=== PATIENT | female | born 1950 | race Caucasian/White ===

== ENCOUNTER 2021-11-20 08:53 | Day surgery (SDC) | payer MEDICARE, SELFPAY ==
--- OUTSIDE RECORDS SUMMARY | 2021-10-19 08:38 | XMS_ITS | Continuity of Care Document ---
:1950 Author Allergies, Adverse Reactions, Alerts No known allergies Social History Smoking Status Status Start Date End Date Date of Observat ion Smokes tobacco daily April 3:49pm (finding) Additional Data Assigned Sex Female Problems Active Problems Medical Problem Onset Date Status Total Knee Arthroplasty October 07, 2012 Active Medications Medication Status Dose Units Route Directions Qty Days Start End Ins tructions Date Date Calcium Active 600 MG Carbonate (Ra Calcium 600) 600 Mg TAB Cholecalcifer Active 1000 U ol (Vitamin D-3) 1,000 Unit TAB Cyclobenzapri Active 5 MG ne Hcl Meloxicam Active 15 MG (Mobic) 15 Mg TAB Metoprolol Active 100 MG Tartrate Triamterene/H Active 1 ctz (Maxzide) 37.5 Mg/25 Mg TAB Acetaminophen Discontin 1-2 TAB PO Q4-6H Prn October ar /Hydrocodone ued , y Bitart 2013 01, (Hydrocodone- 2:26pm 2021 Acetaminophen 2:52pm ) 5 Mg/325 Mg TAB B-Complex Discontin 1 EA PO Daily Januar Vitamins ued y (Vitamin B 10th, Complex) TAB 2021 2:52pm Cholecalcifer Discontin 2000 UNIT PO Daily ol (Vitamin ued y D) 2,000 Unit , CAP 2021 2:52pm Cholecalcifer Discontin 1000 UNIT PO Daily September ol (Vitamin ued 11th, D) 400 Unit 2012 CAP 8:33am Hydrochloroth Discontin 25 MG PO Daily Januar iazide ued y 2021 2:52pm Hydroxyzine Discontin 25-50 MG PO Every 3 60 September Januar Pamoate ued Hours as 15, y needed 2012 10th, 10:27a 2021 m 2:52pm Metoprolol Discontin 100 MG PO Twice A Day Janua r Succinate ued y (Toprol Xl) 10th, 100 Mg TABCR 2021 2:52pm Multiple Discontin 1 EA PO Daily Januar Vitamin ued y (Multivitamin 10th, s) TAB 2021 2:52pm [place]-3 Fatty Discontin 1000 MG PO Daily Januar Acids (Fish ued y Oil) 1,000 Mg 2021 2:52pm Oxycodone Hcl Discontin 5-10 MG PO Every 3-4 50 September ar ued Hours 152012, 10:03a 2022 m 2:52pm Oxycodone Hcl Discontin 5-10 MG PO Every 3 60 Septemberuar ued Hours 182012 10th, 1:33pm 2021 2:52pm Oxycodone Hcl Discontin 5-10 MG PO Q4-6H Prn 80 September ar ued 2012, 8:41am 2021 2:52pm Oxycodone Hcl Discontin 5-10 MG PO Every 3-4 40 September ued Hours , 2012 9:48am 10:03a m Polyethylene Discontin 17 GM PO Daily 527 Septemberr Glycol ued (Polyethylene 2013 01, Glycol 3350) 9:48am 2021 17 Gm PACK 2:52pm Sennosides Discontin 2 TABLET PO Twice A Day 60 September ar (Senna) 1 ued Each TAB 2013 01, 9:48am 2021 2:52pm Vitamin E Discontin 100 UNIT PO Daily Januar ued y 2021 2:52pm Warfarin Discontin 5 MG PO Daily 30 Septemberr Sodium ued 2012, 9:48am 2021 2:52pm Advance Directives Advance Directive Response Recorded Date/Time Does Pt have Health Care Yes October 07, 2012 6:41am Directive? Insurance Providers Guarantor Susan Crooks Address [address] [address] Contact Info. Home Phone: Payer Policy Id Coverage Id Subscriber's Subscriber Effective Expi ration Name Id Date Date [facility] [id number] [place], Medicare Judith E Complete Plan of Treatment Future Tests Future scheduled test information is unavailable Pending Tests Pending diagnostic test information is unavailable Future Visits Future appointment information is unavailable Referrals to Other Providers Referral information is unavailable Future Procedures Future procedure information is unavailable Future Medications Future medication information is unavailable Patient Instructions Attached Discharge Info Warfarin (By mouth)
[2021-11-19 21:00] VITALS: BP 126/56; RESP 18; TEMP 36.9; O2SAT 99
[2021-11-20] VITALS (23 sets, daily range): BP systolic 84–151; BP diastolic 40–103; PULSE 54–72; RESP 16–18; TEMP 35–36.9; O2SAT 94–100; BMI 27.2
[2021-11-20] MEDS: SODIUM CHLORIDE 0.9 % (FLUSH) 10 ML SYRINGE IVF (09:20)
[2021-11-20] MEDS: LACTATED RINGERS 1000 ML 1,000 ML 100 ML IV ×2 (09:20→12:07)
[2021-11-20] MEDS: ACETAMINOPHEN 500 MG TABLET 1000 MG PO ×3 (09:27→22:23)
[2021-11-20] MEDS: CELECOXIB 200 MG CAPSULE PO ×2 (09:27→20:53)
[2021-11-20] MEDS: OXYCODONE (CR) 10 MG TAB.ER.12H PO (09:27)
[2021-11-20] MEDS: fentaNYL 100 MCG/2 ML inj IVP (10:21)
[2021-11-20] MEDS: MIDAZOLAM HCL 1 MG/ML inj IVP (10:21)
--- NOTE | 2021-11-20 10:23 | SUR.PREOP ---
TIME?OUT:?1020 PT/Edy BARNETT RN/Patricia EDMONDS MDA?VERIFICATION?OF?SURGICAL?SITE,?PROCEDURE,?AND?CONSENT OBTAINED?PRIOR?TO?INVASIVE?PROCEDURE.
--- NOTE | 2021-11-20 10:27 | P.NB_ITS ---
Nerve Block Nerve Block Time Seen by Provider: 10:27 Date Seen: 11/20/21 Type of block requested by surgeon for post-operative analgesia: adductor canal Side: left Time out performed: Yes Verification of patient name: Yes Verification of date of : Yes Site marking: site marked Name of person performing procedure: Donald Continuous monitoring Was continuous monitoring of O2 sat, B/P, roll mill operator, recorded every 15 minutes?: Yes Procedure Checklist: sterile prep, needles and gloves Ultrasound guided. Images saved: Yes Medications given in 5ml increments after negative aspiration: Ropivicaine %: 0.5 mL: 20 Needle gauge: 22 Decadron (mg): 10 Precedex (mcg): 25 Patient tolerated procedure well: Yes Additional comments: Needle noted adjacent to nerve Block Charges Block Charge (with Pro Fee): Femoral Nerve Use of Ultrasound Machine for Block: Yes- US Guidance/pain block
--- NOTE | 2021-11-20 10:27 | P.NB_ITS ---
Nerve Block Nerve Block Type of block requested by surgeon for post-operative analgesia: geniculars Time out performed: Yes Verification of patient name: Yes Verification of date of : Yes Site marking: site marked Name of person performing procedure: Donald Continuous monitoring Was continuous monitoring of O2 sat, B/P, cardiac rehabilitation program director, recorded every 15 minutes?: Yes Procedure Checklist: sterile prep, needles and gloves Medications given in 5ml increments after negative aspiration: Ropivicaine %: 0.5 mL: 9 Needle gauge: 25 Patient tolerated procedure well: Yes Block Charges Block Charge (with Pro Fee): Genicular Nerve Block Use of Ultrasound Machine for Block: No
[2021-11-20] MEDS: CEFAZOLIN 2 GM INJ IVP (11:12)
--- NOTE | 2021-11-20 12:36 | CRLHL7_ITS ---
For Patients: As a result of the Cures Act, medical imaging exams and procedure reports are released immediately into your electronic medical record. You may view this report before your referring provider. If you have questions, please contact your health care provider. Indication: Left knee arthroplasty Technique: Left knee 2 view Findings: Hardware from a left knee arthroplasty is in satisfactory position. Bone alignment is normal. No sign of acute fracture. There are postoperative changes in the soft tissues and knee effusion. Dictated by Will Aggarwal MD @ 11/20/2021 2:03:03 PM (Electronically Signed)
--- NOTE | 2021-11-20 12:42 | P.ORPRC_ITS ---
Procedure Note Date of procedure: 11/20/21 Procedure: SURGEON: Ernesto Ball MD CONSTRUCTION STONEMASON: Stephanie Berger PA-C PREOPERATIVE DIAGNOSIS: Left knee osteoarthritis POSTOPERATIVE DIAGNOSIS: Left knee osteoarthritis NAME OF OPERATION: Left total knee arthroplasty ANESTHESIA: Spinal ESTIMATED BLOOD LOSS: 0 mL COMPLICATIONS: None SPECIMENS: None DRAINS: None PREOPERATIVE ANTIBIOTICS: Ancef 2 grams IMPLANTS: 1. J&J Attune # 7 posterior stabilized femur 2. #6 fixed-bearing tibia 3. # 7 posterior stabilized, 7 mm fixed-bearing polyethylene 4. 38 patella INDICATIONS: The patient is a 71-year-old female with a longstanding history of severe, unrelenting left knee pain secondary to end-stage (grade IV) left knee osteoarthritis. Despite appropriate nonoperative management, including activity modification, anti-inflammatories, [id number] pain medication, bracing, physical therapy, and injections they continue to have pain and disability. Operative intervention was offered. The risks, benefits and expected outcomes were discussed in detail. These included but were not limited to: Infection, bleeding, injury to blood vessel or nerve, venous thromboembolism. All questions were answered to their satisfaction. Use of an data control assistant was necessary throughout the case for patient positioning and safety, soft tissue retraction, and closure. PROCEDURE: Spinal anesthesia was administered. The patient was placed supine on the operating table. The data control assistant made sure the patient was positioned appropriately. The lower extremity was prepped and draped in the usual sterile fashion. The limb was exsanguinated with the Marlo bandage. The pneumatic tourniquet was inflated to 300 mmHg. A standard anterior incision was made with the knee in flexion. Subcutaneous dissection was sharply taken through fascial layer #1. Full-thickness medial and lateral flaps were elevated. The data control assistant retracted the soft tissues and protected them throughout the case. A standard medial parapatellar approach was made. The patella was everted. The infrapatellar fat pad was preserved. The menisci and cruciate ligaments were sharply d?brided. Marginal osteophytes were d?brided with the rongeur. The drill was used to penetrate the femoral canal. The canal was aspirated and irrigated with pulse lavage. The intramedullary femoral guide was placed for a 6-degree valgus cut, removing 12 mm off the distal femur. The saw was used to make the cut. Whitesides line and the trans epicondylar axis were marked. The femoral sizing guide was pinned onto the distal femur. Three degrees of external rotation nicely parallels the transepicondylar axis. Pins were placed for posterior referencing. The four-in-one cutting guide was pinned onto the distal femur. The anterior, posterior, and chamfer cuts were made. The data control assistant protected the collateral ligaments. The box cutting guide was pinned. The box cuts were made. The boxed trial was placed and was an excellent fit. Drill holes for the lugs were made. Attention was then turned to the proximal tibia. The extramedullary tibial guide was placed for a neutral varus/valgus cut with 5 degrees of posterior slope, removing 4 sure mm based off the medial tibial surface. The data control assistant protected the collateral ligaments and the neurovascular bundle. The saw was used to make the cut. Trial components were placed. The knee was nicely balanced in both flexion and extension. Rotation of the tibial component was ma tched to the femur in full extension, matched to our tibial cutting pins, and marked with cautery. The trial components were removed. The tray was pinned by the data control assistant and the drill and the punch were used. The tray was removed. The punch was used again. We placed a bone plug in the femoral canal. Attention was then turned to the patella. [place] patellar thickness was 24 mm. The lobster claw resection guide was used with the 9.5 mm armando. The saw was used to make the cut. Drill holes were made by the data control assistant. The trial was placed and was an excellent fit. Cancellous surfaces were irrigated with pulse lavage and thoroughly dried by the data control assistant. We cemented the tibial component, then the femoral component. A trial spacer was placed. The knee was brought into full extension. We then cemented the patellar component. Excessive cement was removed. The cement was allowed to harden. Any remaining excessive cement was removed with the osteotome. We impacted the 7 mm polyethylene onto the tibial tray. The knee was taken through a range of motion and was found to be nicely balanced in both flexion and extension. The patella tracks centrally. The data control assistant did a three minute dilute Betadine solution soak. The data control assistant irrigated the wound with 3 liters of normal saline via pulse lavage. The data control assistant reapproximated the extensor mechanism with #1 Vicryl in an interrupted [id number] fashion. The data control assistant then ran the extensor mechanism with a #1 PDO Stratafix. The data control assistant closed the subcutaneous tissues with a 3-0 Stratafix and the skin with a running 3-0 Stratafix in a subcuticular fashion. Glue was used to seal the skin. The data control assistant placed a dry dressing, IDRIS stocking, and Polar Care. Sponge and needle counts were correct x2. The patient tolerated the procedure well. There were no apparent complications. They were carefully transferred to the hospital bed and taken to the postanesthesia care unit in satisfactory condition. PLAN: The patient will be mobilized with physical therapy. Aspirin will be used for DVT prophylaxis. They will be discharged to home once medically appropriate.
--- NOTE | 2021-11-20 13:23 | W.ANESCHARGE ---
Anesthesia Charges Start Date/Time Anesthesia Start Date: 11/20/21 Anesthesia Start Time: 11:05 Stop Date/Time Anesthesia Stop Date: 11/20/21 Anesthesia Stop Time: 13:20 Summary Emergency: No Extremes of Age: Over 70-CPT 04287
[2021-11-20] MEDS: HYDROmorphone 0.5 mg/0.5 ml inj IVP ×3 (14:39→16:47)
--- NOTE | 2021-11-20 15:11 | W.ANESCHARGE ---
Anesthesia Charges Start Date/Time Anesthesia Start Date: 11/20/21 Anesthesia Start Time: 11:05 Stop Date/Time Anesthesia Stop Date: 11/20/21 Anesthesia Stop Time: 13:20 Summary Emergency: No Extremes of Age: Over 70-CPT 79606
--- NOTE | 2021-11-20 15:18 | PM.IMCN1 ---
Date of Consult Consult date: 11/20/21 Requesting Physician: Orthopedics Primary Care Provider: Vidal Draper MD Consult Narrative Reason for consult: Consultation for management of medical problems following surgery Narrative: Susan Crooks is a 71 year old female who underwent left total knee arthroplasty performed today by Dr. Ball. He is requesting consultation. There were no operative complications. Postoperatively she reports she is generally feeling well although she has noting she is a bit cold. She is just beginning to feel the affects of her block wearing off and get feeling into her legs. No nausea or dyspnea. When she came to the hospital this morning she was fine. Preop physical did not identify any active medical problems to be addressed perioperatively. No problems with previous surgery, anesthesia, bleeding or clotting problems. Review of Systems Narrative: Patient reports she has been feeling well. No recent illness. She reports her medical problems have been generally doing well except for her arthritis. She did not take her max side this morning. Complete review of systems otherwise unremarkable. [facility] Medical History (Updated 11/20/21 @ 15:28 by Barry Clark MD) Cervical vertebral fusion (~02/26/99) Colonic stricture Diverticulosis Hypertension Osteoarthritis Osteopenia Scoliosis Surgical History (Updated 11/20/21 @ 15:28 by Barry Clark MD) History of fusion of cervical spine History of meniscectomy of right knee History of total knee arthroplasty (10/07/12) History of total right knee replacement (TKR) (~10/07/12) Family History Father FHx: kidney cancer Mother Stroke High blood pressure Osteoarthritis Brother Prostate cancer Social History (Updated 11/20/21 @ 15:25 by Barry Clark MD) Narrative: She lives in her own home in [place]. She has a son who lives with her. She has a friend, Marcelina Collins, who is going to stay with her and help her for the 1st couple weeks after surgery. She has 1 step into her house and then can live on 1 level. She has 3 children, 1 who lives with her. Code status is DNR. Healthcare power of traffic law attorney would be her friend Marcelina or her 2 older children. She smokes a half pack of cigarettes a day. She is not interested in nicotine replacement. She drinks alcohol 1-2 drinks per day. She does not have problems if she skips a couple days of alcohol consumption. health maintenance- patient mobility last done 12/15/12 Smoking Status: Current every day smoker What tobacco products do you use: cigarettes Smoking packs per day: 0.5 Smoking cigarettes per day: 10.0 Years smoked: 50 Smoking pack-years: 25.00 Do you use any of these nicotine containing products: None How often do you have a drink containing alcohol: 4 or more times a week Alcohol type: hard liquor How many standard drinks containing alcohol do you have on a typical day: 1 or 2 How often do you have six or more drinks on one occasion: Never AUDIT-C Alcohol total score: 4 Non-prescribed substance use: over the counter (eg: immodium) Non-prescribed substance use details: ibuprofen, acetaminophen Caffeine: Yes (coffee, 1-2 cups/day) Meds Home Medications and Allergies Home Medications Medication Instructions Recorded Confirmed Type calcium carbonate 600 mg calcium 600 mg PO BID 11/19/21 11/20/21 History (1,500 mg) tablet (Calcium) cholecalciferol (vitamin D3) 25 1,000 unit PO DAILY 11/19/21 11/20/21 History mcg (1,000 unit) capsule (Vitamin D3) cyclobenzaprine 5 mg tablet 5 mg PO Q8H PRN 11/19/21 11/20/21 History metoprolol tartrate 100 mg tablet 100 mg PO Q12H 11/19/21 11/20/21 History multivitamin 1 tab PO DAILY 11/19/21 11/20/21 History omega 2-qqb-uyb-fish oil 1,000 mg 1 cap PO DAILY 11/19/21 11/20/21 History (120 mg-180 mg) capsule (Fish Oil) triamterene 37.5 1 tab PO QAM 11/19/21 11/20/21 History mg-hydrochlorothiazide 25 mg tablet vitamin B complex 1 tab PO DAILY 11/19/21 11/20/21 History vitamin E mixed 100 unit tablet 100 unit PO DAILY 11/19/21 11/20/21 History Allergies Allergy/AdvReac Type Severity Reaction Status Date / Time No Known Allergies Allergy Unverified 11/13/21 08:26 Exam Narrative: Exam Narrative: She is alert and appears in no distress. Oropharynx is normal. Neck is supple without mass or adenopathy. Respirations are clear to auscultation. Cardiovascular: S1, S2, regular rate and rhythm. No murmur gallop or rub. Abdomen is soft without tenderness or mass. She has intact pulses and sensation distally she has intact strength in her feet and ankles. No edema. Hands and feet are somewhat cool to touch however. Const: Vital Signs, click to edit/add: Vital Signs - 24 hr 11/20/21 09:24 11/20/21 10:19 11/20/21 10:25 Temperature 97.7 F Pulse Rate 72 61 58 L Pulse Rate [Pulse Oximeter] Respiratory Rate 16 18 16 Blood Pressure 126/64 93/79 96/66 Blood Pressure [Le ft Arm] Pulse Oximetry 98 100 100 11/20/21 10:30 11/20/21 10:45 11/20/21 11:00 Temperature Pulse Rate 57 L 54 L 58 L Pulse Rate [Pulse Oximeter] Respiratory Rate 16 16 16 Blood Pressure 85/54 L 84/56 L 86/40 L Blood Pressure [Le ft Arm] Pulse Oximetry 99 98 99 11/20/21 13:17 11/20/21 13:20 11/20/21 13:25 Temperature 97.5 F L Pulse Rate 68 61 63 Pulse Rate [Pulse Oximeter] Respiratory Rate 16 16 16 Blood Pressure 85/52 L 123/65 112/59 L Blood Pressure [Le ft Arm] Pulse Oximetry 99 99 100 11/20/21 13:30 11/20/21 13:34 11/20/21 13:45 Temperature 97.0 F L 95 F L Pulse Rate 64 62 55 L Pulse Rate [Pulse Oximeter] Respiratory Rate 16 16 16 Blood Pressure 108/57 L 119/67 Blood Pressure [Le ft Arm] 102/62 Pulse Oximetry 98 97 11/20/21 14:00 11/20/21 14:15 11/20/21 14:30 Temperature 95.0 F L 95.6 F L 95.6 F L Pulse Rate Pulse Rate [Pulse Oximeter] 57 L 57 L 57 L Respiratory Rate 16 18 16 Blood Pressure Blood Pressure [Le ft Arm] 111/65 118/86 133/86 Pulse Oximetry 95 95 95 Documenting provider has reviewed patient's vital signs: yes Assessment and Plan Assessment and plan (1) History of arthroplasty of left knee: Status: Acute Assessment and Plan: Doing well. Routine PT and pain management (2) Smoking: Status: Acute Assessment and Plan: Patient declines nicotine replacement (3) Hypertension: Status: Acute Assessment and Plan: Continue metoprolol but hold Dyazide pending improvement in blood pressure and peripheral perfusion
[2021-11-20] MEDS: OXYCODONE 5 MG TABLET PO ×3 (15:29→22:17)
[2021-11-20 15:56] LABS: Sodium* 129 mmol/L (135-149)
[2021-11-20] MEDS: hydrOXYzine pamoate 25 MG CAPSULE PO (16:47)
[2021-11-20] MEDS: CEFAZOLIN 1 GM in 0.9 % SODIUM CHLORIDE Mini-bag 100 ML IVPB ×2 (18:15→22:25)
--- NOTE | 2021-11-20 20:27 | PC.NURSE ---
shift note; vss per post op routine initiated @1345. Pt had weakness with movement on lt l/e. drsg to lt knee c/d/i. PP+ bilat. pt having pain 4-8/10 and was medicated with dilaudid 0.5mg x2, oxycodone 10mg po x2, vistaril 25mg, and scheduled tylenol with minimal relief. pt states pain as high as 8/10 and as low as 4/10. Pt states pain lt knee travels to foot. Pt performing IS to 1500 and has clr LS bilat. Pt tolerating regular diet. IV patent
[2021-11-20] MEDS: SENNOSIDES 1 TAB TABLET 2 TAB PO (20:54)
[2021-11-20] MEDS: CALCIUM CARBONATE 500 MG TABLET PO (20:55)
[2021-11-20] MEDS: ASPIRIN 81 MG TABLET EC PO (20:55)
[2021-11-20] MEDS: LACTATED RINGERS 1000 ML 1,000 ML 75 ML IV (22:27)
[2021-11-21 02:00] VITALS: BP 149/75; RESP 18; TEMP 36.8; O2SAT 97
[2021-11-21 03:18] VITALS: TEMP 36.9
[2021-11-21] MEDS: ACETAMINOPHEN 500 MG TABLET 1000 MG PO ×2 (03:18→09:54)
[2021-11-21] MEDS: CEFAZOLIN 1 GM in 0.9 % SODIUM CHLORIDE Mini-bag 100 ML IVPB ×2 (05:05→13:57)
--- NOTE | 2021-11-21 06:17 | PC.NURSE ---
Alert and orientedx4. Vitals stable. On room air. Took home Metoprolol last night; educated on not taking home medications while remaining hospitalized; medications placed in the medroomWas able to void overnight for 900cc total. Ambulated on the hallway with standby assist using a walker. Tolerating pain well with activity. No further concerns noted
[2021-11-21 07:33] LABS: Basophils Percent Auto 0.1 % (0.0-3.0); Eosinophils Percent Auto 0.1 % (0.0-7.0); Hematocrit 38.8 % (33.0-51.0); Hemoglobin* 13.7 gm/dL (12.0-16.0); Immature Granulocytes Abs Auto 0.04 K/uL (0.00-0.30); Lymphocytes Percent Auto 10.7 % (20-44); Mean Corpuscular HGB Conc 35 gm/dL (32-36); Mean Corpuscular Hemoglobin 32 pg (26-34); Mean Corpuscular Volume 89 fL (80-100); Monocytes Percent Auto 6.7 % (0.0-11.0); Neutrophils Percent Auto 82.1 % (42.0-72.0); Platelet Count* 278 K/uL (140-440); RDW Coefficient of Variation % 12.4 % (11.5-15.5); Red Blood Count 4.34 m/uL (4.00-5.20); White Blood Count* 15.83 K/uL (4.50-11.00)
[2021-11-21 07:42] LABS: Slide Review Reflex No
[2021-11-21 07:45] LABS: INR 0.93 (0.91-1.10); Prothrombin Time 12.8 Seconds
[2021-11-21 07:46] LABS: Potassium* 3.7 mmol/L (3.6-5.1)
[2021-11-21 07:49] LABS: Blood Urea Nitrogen* 11 mg/dL (7-30); Creatinine* 0.6 mg/dL (0.5-1.5); Est. Creatinine Clearance* 50.18; Estimated Glomerular Filt Rate 96 ml/min
--- NOTE | 2021-11-21 08:46 | PM.ORPN ---
Subjective Subjective Time Seen by Provider: 07:30 Date Seen: 11/21/21 Principal diagnosis: Status post left total knee arthroplasty Interval history: Susan is comfortable this morning at rest in her hospital bed. Plan is for discharge today to home. Ortho Exam Narrative Exam Narrative: Alert and oriented x3. Patient is in no acute distress. Converses without labored breathing. Hearing is grossly intact. Examination of the left knee shows the dressing is intact. Very minimal soft tissue edema about the left knee. Minimal effusion. CMS intact left lower extremity. Difficulty with finding pedal pulses, however capillary refill is brisk less than 2 seconds, the left foot is warm. Bilateral calves are soft and nontender. Const Vital Signs, click to edit/add: Vital Signs - 24 hr 11/20/21 09:24 11/20/21 10:19 11/20/21 10:25 Temperature 97.7 F Pulse Rate 72 61 58 L Pulse Rate [Pulse Oximeter] Respiratory Rate 16 18 16 Blood Pressure 126/64 93/79 96/66 Blood Pressure [Left Arm] Pulse Oximetry 98 100 100 11/20/21 10:30 11/20/21 10:45 11/20/21 11:00 Temperature Pulse Rate 57 L 54 L 58 L Pulse Rate [Pulse Oximeter] Respiratory Rate 16 16 16 Blood Pressure 85/54 L 84/56 L 86/40 L Blood Pressure [Left Arm] Pulse Oximetry 99 98 99 11/20/21 13:17 11/20/21 13:20 11/20/21 13:25 Temperature 97.5 F L Pulse Rate 68 61 63 Pulse Rate [Pulse Oximeter] Respiratory Rate 16 16 16 Blood Pressure 85/52 L 123/65 112/59 L Blood Pressure [Left Arm] Pulse Oximetry 99 99 100 11/20/21 13:30 11/20/21 13:34 11/20/21 13:45 Temperature 97.0 F L 95 F L Pulse Rate 64 62 55 L Pulse Rate [Pulse Oximeter] Respiratory Rate 16 16 16 Blood Pressure 108/57 L 119/67 Blood Pressure [Left Arm] 102/62 Pulse Oximetry 98 97 11/20/21 14:00 11/20/21 14:15 11/20/21 14:30 Temperature 95 F L 95.6 F L 95.6 F L Pulse Rate Pulse Rate [Pulse Oximeter] 67 57 L 57 L Respiratory Rate 16 18 16 Blood Pressure Blood Pressure [Left Arm] 111/65 118/86 133/86 Pulse Oximetry 95 95 95 11/20/21 14:45 11/20/21 15:15 11/20/21 15:45 Temperature 95.6 F L 96.5 F L 96.5 F L Pulse Rate Pulse Rate [Pulse Oximeter] 57 L 58 L 60 Respiratory Rate 16 16 18 Blood Pressure Blood Pressure [Left Arm] 115/84 119/79 108/72 Pulse Oximetry 95 96 97 11/20/21 16:45 11/20/21 17:45 11/20/21 18:45 Temperature 96.5 F L 97.1 F L 97.1 F L Pulse Rate Pulse Rate [Pulse Oximeter] 62 61 61 Respiratory Rate 18 18 18 Blood Pressure Blood Pressure [Left Arm] 131/84 145/103 H 124/88 Pulse Oximetry 99 99 99 11/20/21 22:00 11/21/21 02:00 11/21/21 03:18 Temperature 98.5 F 98.3 F 98.5 F Pulse Rate Pulse Rate [Pulse Oximeter] Respiratory Rate 18 18 Blood Pressure Blood Pressure [Left Arm] 132/72 149/75 H Pulse Oximetry 99 97 Assessment and Plan Assessment and plan (1) History of arthroplasty of left knee: Problem details: Plan for discharge is today to home if they meet discharge criteria. DVT prophylaxis includes aspirin 81 mg twice daily x1 month, Ruslan stockings x1 month may remove for 1 hr per day, frequent ambulation Remove dressing in 1 week. Observe wound and phone Orthopedics with any questions or concerns Return to clinic in 1 week for a wound check Return to clinic in [address] Ball Minimize narcotic use. Wean off and discontinue soon as possible. Activities as tolerated. No strenuous activity. Outpatient physical therapy as scheduled. Ice and elevate the operative extremity. No restriction on ice. Status: Acute (2) Smoking: Status: Acute (3) Hypertension: Status: Acute
[2021-11-21 09:46] LABS: Chloride* 94 mmol/L (96-114); Sodium* 127 mmol/L (135-149)
[2021-11-21 09:49] LABS: Calcium* 9.6 mg/dL (8.4-10.6); Carbon Dioxide* 26 mmol/L (20-32); Glucose* 124 mg/dL (60-115)
[2021-11-21] MEDS: SENNOSIDES 1 TAB TABLET 2 TAB PO (09:49)
[2021-11-21] MEDS: CELECOXIB 200 MG CAPSULE PO (09:49)
[2021-11-21] MEDS: MULTIVITAMIN/MINERALS 1 TABLET 1 TAB PO (09:50)
[2021-11-21] MEDS: CALCIUM CARBONATE 500 MG TABLET PO (09:50)
[2021-11-21] MEDS: ASPIRIN 81 MG TABLET EC PO (09:50)
[2021-11-21] MEDS: METOPROLOL TARTRATE 100 MG TABLET PO (09:51)
[2021-11-21] MEDS: 0.9 % SODIUM CHLORIDE 500 ML 500 ML IV (12:05)
[2021-11-21] MEDS: OXYCODONE 5 MG TABLET PO (13:58)
[2021-11-21 15:18] LABS: Sodium* 128 mmol/L (135-149)
--- NOTE | 2021-11-21 15:46 | PC.NURSE ---
Spoke with Dr. Manley, updated Na 128, per ok to discharge.
--- NOTE | 2021-11-21 15:49 | PM.IMPN1 ---
Progress Note: A&P Assessment and plan (1) History of arthroplasty of left knee: Problem details: Plan for discharge is today to home if they meet discharge criteria. DVT prophylaxis includes aspirin 81 mg twice daily x1 month, Ruslan stockings x1 month may remove for 1 hr per day, frequent ambulation Remove dressing in 1 week. Observe wound and phone Orthopedics with any questions or concerns Return to clinic in 1 week for a wound check Return to clinic in [address] Ball Minimize narcotic use. Wean off and discontinue soon as possible. Activities as tolerated. No strenuous activity. Outpatient physical therapy as scheduled. Ice and elevate the operative extremity. No restriction on ice. Status: Acute Plan (1) History of arthroplasty of left knee: ?Status:?Acute ?Assessment and Plan: Doing well.? Routine PT and pain management (2) Smoking: ?Status:?Acute ?Assessment and Plan: Patient declines nicotine replacement (3) Hypertension: ?Status:?Acute ?Assessment and Plan: Continue metoprolol resuming dyazide at discharge 4. Hypochloremic hyponatremia; euvolemic on exam; sodium improved from 127 to 128 this afternoon with NS bolus. Continue oral hydration (Gatorade; electrolyte based solutions) recheck sodium in clinic next week Time Spent With Patient Total time spent: 25 minutes Subjective Date Seen: 11/21/21 Interval history: patient doing well discharging today afternoon sodium increased to 128 asymptomatic denies headache Exam Narrative: Exam Narrative: Gen: No acute distress HEENT: NCAT EOMI MMM CV: RRR normal s1 s2 Lungs: CTAB Abdo: soft, nt, nd Neuro: alert, oriented; nonfocal screening exam Const: Vital Signs, click to edit/add: Vital Signs - 24 hr 11/20/21 16:45 11/20/21 17:45 11/20/21 18:45 Temperature 96.5 F L 97.1 F L 97.1 F L Pulse Rate [Pulse Oximeter] 62 61 61 Respiratory Rate 18 18 18 Blood Pressure [Le ft Arm] 131/84 145/103 H 124/88 Pulse Oximetry 99 99 99 11/20/21 22:00 11/21/21 02:00 11/21/21 03:18 Temperature 98.5 F 98.3 F 98.5 F Pulse Rate [Pulse Oximeter] Respiratory Rate 18 18 Blood Pressure [Le ft Arm] 132/72 149/75 H Pulse Oximetry 99 97 Labs Labs: Laboratory Results - last 24 hr 11/20/21 11/21/21 11/21/21 15:30 06:45 06:45 WBC 15.83 H RBC 4.34 Hgb 13.7 Hct 38.8 MCV 89 MCH 32 MCHC 35 RDW Coeff of Martha 12.4 Plt Count 278 Neut % (Auto) 82.1 H Lymph % (Auto) 10.7 L [place] % (Auto) 6.7 Eos % (Auto) 0.1 Baso % (Auto) 0.1 Neut # (Auto) 13.00 H Lymph # (Auto) 1.70 [place] # (Auto) 1.10 H Eos # (Auto) 0.00 Baso # (Auto) 0.00 Abs Immat Gran (auto) 0.04 INR 0.93 Sodium 129 L Potassium Chloride Carbon Dioxide BUN Creatinine Estimated Creat Clear Estimated GFR Glucose Calcium 11/21/21 11/21/21 06:45 14:25 WBC RBC Hgb Hct MCV MCH MCHC RDW Coeff of Martha Plt Count Neut % (Auto) Lymph % (Auto) [place] % (Auto) Eos % (Auto) Baso % (Auto) Neut # (Auto) Lymph # (Auto) [place] # (Auto) Eos # (Auto) Baso # (Auto) Abs Immat Gran (auto) INR Sodium 127 L 128 L Potassium 3.7 Chloride 94 L Carbon Dioxide 26 BUN 11 Creatinine 0.6 Estimated Creat Clear 50.18 Estimated GFR 96 Glucose 124 H Calcium 9.6
--- NOTE | 2021-11-21 18:11 | PC.NURSE ---
shift [phone] pt this shift pleasant and cooperative. Pain managed with ice and prn meds, see eMAR. pt discharged to home, discharge instruction and follow-up appointment discussed. Pt wheeled out to front door and picked up by friend. IV dc'd.
== END 2021-11-21 18:10 | disposition home or self-care (01) ==
LOC: OR 13:39 → MEDSURG 13:56
PROVIDERS: Hospitalist; PCP Family Medicine; Visit Provider Orthopaedic Surgery
PROC: (CPT 27447; principal; 2021-11-20 11:00)
DX: M17.12 Unilateral primary osteoarthritis, left knee (principal); I10 Essential (primary) hypertension; M85.80 Other specified disorders of bone density and structure, unspecified site; F17.210 Nicotine dependence, cigarettes, uncomplicated; E87.8 Other disorders of electrolyte and fluid balance, not elsewhere classified; E87.1 Hypo-osmolality and hyponatremia
CPT/HCPCS: 27447; 01402; 36415; 64447; 64454; 73560; 76942; 80048; 82565; 84132; 84295; 84520; 85025; 85610; 97110; 97116; 97161; 97165; 97535; 99100; A9153; A9270; C1776; J0690; J1100; J1170; J2250; J2370; J2704; J2795; J3010; J7120

== ENCOUNTER 2021-12-13 11:15 | Outpatient (RCR) | payer MEDICARE, SELFPAY ==
--- NOTE | 2021-11-13 14:43 | PT.OPEX ---
PT [place] Outpatient Eval PT [facility] Outpatient Eval Start: 11/13/21 11:29 Freq: Status: Active Protocol: Document 11/13/21 11:30 ENM (Rec: 11/13/21 14:30 ENM [id number]) E-Signed By JOSÉ BanksT Physical Therapy Outpatient Evaluation Insurance Information Recert Due Date 02/05/22 Insurance Name Medicare B Medical Diagnosis L TKA Treating Diagnosis left knee pain, decreased hip strength, decreased knee strength, impaired balance, impaired gait Referring MD Jimenez Subjective Subjective Patient presents for pre-op TKA appointment prior to surgery on 11/20/21. She had her right knee done in 2011, that went smoothly but the knee does still feel stiff. She states that she doesn't use an AD at baseline but back in the fall she did have to start using w/c transport at airport or a cane for longer walks on vacation. Her ability to walk her dogs has become impacted as she can't walk as far anymore. Gardening has also been more challenging as she can't bend down well. Sometimes she has no new pain but when it is present it can be significant. Her friend will be staying with her for a couple of weeks after the surgery. She purchased a 2WW and has a cane . She already has grab bars by the toilet and shower. 2 steps to get in with just furniture support, doesn't have to do the stairs within the house as those lead to the laundry room. Patients goal after surgery is to be able to walk her dogs for longer. 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 Objective Other/Pertinent Objective Knee ROM L 2-0-125 with cramping while performing flexion, ext + for pain R 2-0-124 hip ROM WNL IR + for pain in hips B, ER R WNL L 25% limited strength: hip flexors 4-/5 B with pain in low back when performed on R knee extensors: 4-/5 B good quad set B, able to perform SLR B gait/balance: L ~7 s before LOB, R ~3-4s before LOB greater instability on R compared to L Patient ambulating with LLE toeing out, flexed knee posture, wider JEANMARIE with L knee valgus throughout palpation/joint mobility: no tenderness to palpation along joint line or patella L side, slightly limited patellar mobility med/lat/sup/inf swelling/observation: Patient with L knee valgus posture in standing, hallux valgus bilateral big toe Other: mild calf tightness B Functional Test Performed & Score LEFS: Assessment Assessment/Impression Patient is a 71year old female presenting for pre op visit prior to TKA on 11/20 to be performed by . Patient has difficulty with walking longer distances and gardening due to knee pains. She doesn't have knee pain all the time but when present it is significant 11/04. She will have support from her friend at home upon d/c. Patients goal is to be able to walk her dog for longer and be able to garden after her knee replacement. Upon assessment patient displays decreased proximal hip and knee strength, impaired gait pattern, impaired balance and bilateral calf tightness. She was given pre-op exercises to begin prior to surgery. Patient will be seen post operatively to reassess impairments that will be addressed with skilled care. Susan would greatly benefit from skilled PT to progress strength, ROM and ambulation post operatively in order to perform all household and work duties without significant difficulty or discomfort. Primary Functional Limitations walking, gardening Plan of Care Rehabilitation Potential Good Physical Therapy Goals After pre-op visit: ? Patient will be independent with HEP ? Patient will verbalize knowledge of stair navigation and proper sequencing ? Patient will have knowledge on home adaptations and use of assistive devices post operatively ? Patient will have knowledge of edema management Coordination/Communication With Referral Source Treatment Plan/Direct Interventions Gait Training,Joint Mobilization,Manual Therapy, Neuromuscular Re-ed,Self-Care/ Home Management,Therapeutic Activities,Therapeutic Exercises Frequency/Duration 1x visit prior to surgery on . Patient scheduled to start outpatient PT s/p TKA on 11/23. Has HEP to start with pre-operatively. Patient Will Be Discharged From Therapy Completion of LTG(s), Independent w/HEP Evaluation Billing Untimed Code Treatment Minutes 21 Complexity Low Certification Information Initial Certification Date 11/13/21 Ending Certification Date 02/05/22
--- NOTE | 2021-11-26 08:52 | PT.OPDNX ---
PT [facility] Outpatient Daily Note PT [facility] Outpatient Daily Note Start: 11/13/21 11:29 Freq: Status: Active Protocol: Document 11/23/21 12:39 ENM (Rec: 11/23/21 16:34 ENM [id number]) E-signed By Pauline Dobbs DPT PT OP Daily Progress Note Visit Information Note Type Re-Evaluation Visit Number 2 Insurance Information Recert Due Date 02/05/22 Insurance Name Medicare B Medical Diagnosis L TKA Treating Diagnosis left knee pain, decreased hip strength, decreased knee strength, impaired balance, impaired gait, impaired transfers Referring MD Subjective Subjective Patient underwent L TKA performed by on 11/20. She states that things have been getting better every day. The hardest thing right now is being able to lift that leg and bend the knee. She is getting around alright with the walker. The steps to get in/out haven't been too bad, someone else is doing her laundry for her right now so she isn't doing the stairs in her house. Sit to stands are the most challenging as patient states that right leg has to do most of the work or else its too painful. She has been able to manage pains with ice and medication. Patients goal is to be able to go on her walks and have less pain. PMHx: arthritis, R TKA Pain Comments varies moderate pain easing: icing and pain medication aggravating: bending the knee, sit to stands Home Exercise Home Exercise Comments pre op exercises: LAQ, SAQ, SLR, quad set, heel slide seated and supine, ankle pumps , knee ext stretch, HS set, Objective Other/Pertinent Objective Knee ROM L 0-3-75 R 2-0-124 hip ROM WFL as seen per transfer strength: did not formally assess MMT due to s/p TKA fair quad set L, good quad set R SLR unable to perform without full assist gait/balance: Patient ambulating with flexed posture, decreased knee extension, antalgic gait pattern, mod reliance of walker for support. R trunk lean and thrusting of LLE to swing through palpation/joint mobility: + for tightness and tenderness proximal to mid quad swelling/observation: superior patella L 49 cm R 42. 3 cm mid patella L 46 cm R 41 cm inferior patella L 42 cm R 40 cm no significant bruising present at this time, slight redness at medial knee joint Other: STS Pt having to perform with LLE extended supine<>sit having to lift LLE to perform Functional Test Performed & Score pre op LEFS: post op LEFS: Patient Instructed in Risks/Benefits Yes Therapeutic Exercise Therapeutic Exercise Minutes (minutes) 13 Therapeutic Exercise: To Restore quad set with 5s holds, TC for Functional Status quad activation and VC to decrease glute use SLR with strap assist in long sitting supine heel slide with strap seated heel slide with slider seated knee ext stretch with stairs Time spent reinforcing importance of performing exercises to regain strength and ROM. Educated on POC focus on quad activation and regaining full extension, goal of 90 deg of flexion to start out Manual Therapy Techniques Manual Therapy Minutes (minutes) 9 Manual Therapy Techniques Skilled edema massage anterior and posterior thigh/ knee Gait & Stair Training Gait Training/Stairs Minutes (minutes) 4 Gait & Stair Training Comments Therapist adjusting walker height for patient and educating pt on implementing quad activation with ambulation. Therapist cueing for pt to allow knee flexion with swinging through LLE as pt just thrusting extended extremity forward. Pt able to implement cues Treatment Minutes Untimed Code Treatment Minutes 24 Timed Code Treatment Minutes 26 Total Treatment Time 50 Billing Units Manual Therapy Units 1 Therapeutic Exercise Units 1 Re-Evaluation Units 1 Assessment/Impression Assessment/Impression Patient returns to PT for evaluation after TKA 11/20/21 performed by . Since being home pains have been improving as well as overall energy levels. They have been able to navigate their home environment with use of the 2WW with minimal difficulty. Patient is having difficulties with sit to stands, bending the knee, lifting the leg and walking. She has had moderate pain which has been well controlled with medication and icing. Her goal is to get back to walking and gardening as able. Upon assessment patient presents with decreased knee ROM, impaired gait, impaired balance, impaired transfers, decreased quad strength and swelling. Patient unable to perform SLR without total assist due to pain and weakness. Also has to perform STS transfers with LLE extended due to knee pains with flexion. Left knee joint line swelling measurements show a 7 cm difference compared to contralateral side with no significant bruising at this time. Impairments consistent with s/ p TKA. Patient would benefit from skilled PT to address impairments stated above in order to to perform all functional and recreational activities without significant difficulty or discomfort. Plan of Care Physical Therapy Goals In 5-6 weeks: 1. Patient will improve knee ROM to > 100 for improved ease of STS transfers 2. Patient will be able to perform tub transfer without difficulty and less than 2/10 knee pain for improved ability to perform self cares/ADLS 3. Patient will perform >5 SLR with improved form and strength to improve supine<> sit transfer In 7-11 visits: 1. Patient will improve knee ROM to >120 in order to comfortably navigate stairs for household and community navigation 2. Patient will ambulate with improved mechanics and no pain without AD >150' for improved community mobility 3. Patient will return to gardening activities with less than 2/10 knee pain demonstrating improved activity tolerance Daily Plan of Care Continue per POC Daily Plan of Care Comments 1-2x a week for 5 weeks, 1x a week for 4-5 weeks Recertification Information Patient's H.I.C.N.# # I Certify That I Have Established All Therapy Services/Plan Physician Signature Shows Agreement Dates & Medical Necessity Physician Comment/Change Comment or Changes Physician Signature & Date Please Sign/Date Here Physician NPI Number #
== END 2022-01-29 14:55 | disposition home or self-care (01) ==
PROVIDERS: Visit Provider Orthopaedic Surgery
DX: M25.562 Pain in left knee (principal); Z51.89 Encounter for other specified aftercare
CPT/HCPCS: 97110; 97140; 97161; 97164

== ENCOUNTER 2023-01-10 14:41 | Outpatient (CLI) | payer MEDICARE, SELFPAY | END 2023-01-10 14:42 | disposition home or self-care (01) | LOC: AMB 01-11 18:30 | PROVIDERS: PCP Family Medicine; Visit Provider Emergency Medicine | DX: R55 Syncope and collapse (principal) | CPT/HCPCS: A0425; A0427 ==

== ENCOUNTER 2023-01-10 15:15 | Emergency (ER) | payer MEDICARE, SELFPAY ==
[2023-01-10] VITALS (12 sets, daily range): BP systolic 137; BP diastolic 72; PULSE 64–74; RESP 18; TEMP 36.3; O2SAT 96–99; BMI 25.8
--- NOTE | 2023-01-10 15:33 | CRLHL7_ITS ---
For Patients: As a result of the Cures Act, medical imaging exams and procedure reports are released immediately into your electronic medical record. You may view this report before your referring provider. If you have questions, please contact your health care provider. Indication: Syncope Comparison: None available. Technique: PA and lateral views of the chest Findings: There is hyperinflation and chronic interstitial change with basilar atelectasis and parenchymal scar. There is no dense consolidation, effusion or pneumothorax. The cardiomediastinal silhouette is within normal limits. The bony thorax is grossly intact. Impression: Chronic interstitial changes without evidence of dense consolidation. Dictated by Kalia Baird MD @ 01/10/2023 5:54:28 PM (Electronically Signed)
--- NOTE | 2023-01-10 15:44 | ED_ITS ---
HPI - General Adult General Time Seen by Provider: 15:44 Date Seen: 01/10/23 Chief complaint: Syncope/Fainted Stated complaint: Syncopy Time Seen by Provider: 01/10/23 15:32 History of Present Illness HPI narrative: This is a very pleasant 72-year-old female brought to the ER today by EMS from her home for evaluation after a syncopal event. Report the patient is that she does have long-term blood pressure. She is on metoprolol and triamterene for that. She does not know her doses but she has been steady on them for a long time. No recent changes. She is confident that she did not take too much of her blood pressure medication this morning or lately. She did not have any other recent illnesses. No recent fever. No cough. No trouble breathing. No vomiting or diarrhea. No black or bloody stools. No abdominal pain. She was healthy normal this morning but she had a bit of a ?lazy? morning where she did not do as much activity is normal. This afternoon she walk out into her driveway to meet her petroleum engineering professor who was re turning the patient's house keys (sitter had watched her CT last week). While in the driveway she suddenly began to feel dizzy. She apparently slumped against the car and then slid down onto the ground. It sounds like she slid gently and was not injured did not hit her head. She was briefly unresponsive. Her petroleum engineering professor called 911. Patient did not have any chest pain, palpitations, shortness of breath, headache, abdominal pain or back pain. When paramedics arrived she was still on the ground. No report of seizure activity. She is she was somewhat dizzy. Initial blood pressure was 80/40. Initial heart rate was in 30s but appeared to be sinus. Subsequently they established an IV. Blood pressure came up to about 120/60. She received 250 mL of crystalloid EN route. She is otherwise mentating normally. No focal deficits. Blood sugar was normal. Subsequent blood pressure measurements were normal. No other arrhythmia or ectopy noted on EMS monitor. Now that she is here in the ER the patient says she still feels a little bit dizzy but has no other complaints. Related Data Home Medications Medication Instructions Recorded Confirmed calcium carbonate 600 mg calcium 600 mg PO BID 11/19/21 06/03/22 (1,500 mg) tablet (Calcium) cholecalciferol (vitamin D3) 25 1,000 unit PO DAILY 11/19/21 06/03/22 mcg (1,000 unit) capsule (Vitamin D3) cyclobenzaprine 5 mg tablet 5 mg PO Q8H PRN 11/19/21 06/03/22 metoprolol tartrate 100 mg tablet 100 mg PO Q12H 11/19/21 06/03/22 multivitamin 1 tab PO DAILY 11/19/21 06/03/22 omega 5-zsc-nzr-fish oil 1,000 mg 1 cap PO DAILY 11/19/21 06/03/22 (120 mg-180 mg) capsule (Fish Oil) triamterene 37.5 1 tab PO QAM 11/19/21 06/03/22 mg-hydrochlorothiazide 25 mg tablet vitamin B complex 1 tab PO DAILY 11/19/21 06/03/22 vitamin E mixed 100 unit tablet 100 unit PO DAILY 11/19/21 06/03/22 acetaminophen 500 mg tablet 1,000 mg PO Q6H PRN 06/03/22 06/03/22 (Tylenol Extra Strength) Allergies Allergy/AdvReac Type Severity Reaction Status Date / Time No Known Allergies Allergy Unverified 06/03/22 09:58 [facility] Medical History (Updated 01/10/23 @ 18:23 by Richard Weston MD) Health care directive on file ?Z78.9 - Other specified health status (ICD-10) Osteoarthritis ?M19.90 - Unspecified osteoarthritis, unspecified site (ICD-10) Colonic stricture ?K56.699 - Other intestinal obstruction unspecified as to partial versus complete obstruction (ICD-10) Osteopenia ?M85.80 - Other specified disorders of bone density and structure, unspecified site (ICD-10) Cervical vertebral fusion (~02/26/99) ?M43.22 - Fusion of spine, cervical region (ICD-10) Diverticulosis ?K57.90 - Diverticulosis of intestine, part unspecified, without perforation or abscess without bleeding (ICD-10) Scoliosis ?M41.9 - Scoliosis, unspecified (ICD-10) Hypertension ?I10 - Essential (primary) hypertension (ICD-10) Surgical History (Updated 05/21/22 @ 11:17 by Krista Whiting) S/P left knee arthroscopy (04/22/12) ?Z98.890 - Other specified postprocedural states (ICD-10) 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) ?Z96.652 - Presence of left artificial knee joint (ICD-10) History of fusion of cervical spine ?Z98.1 - Arthrodesis status (ICD-10) History of meniscectomy of right knee (03/17/06) ?Z98.890 - Other specified postprocedural states (ICD-10) History of total right knee replacement (TKR) (10/07/12) ?Z96.651 - Presence of right artificial knee joint (ICD-10) Family History Father FHx: kidney cancer Mother Stroke High blood pressure Osteoarthritis Brother Prostate cancer Social History (Reviewed 06/03/22 @ 09:56 by Binta Tamez ~ [facility], [facility]) Narrative: She lives in her own home in [place]. She has a son who lives with her. She has a friend, Marcelina Collins, who is going to stay with her and help her for the 1st couple weeks after surgery. She has 1 step into her house and then can live on 1 level. She has 3 children, 1 who lives with her. Code status is DNR. Healthcare power of trademark attorney would be her friend Marcelina or her 2 older children. She smokes a half pack of cigarettes a day. She is not interested in nicotine replacement. She drinks alcohol 1-2 drinks per day. She does not have problems if she skips a couple days of alcohol consumption. health maintenance- patient mobility last done 12/15/12 Smoking Status: Current every day smoker What tobacco products do you use: cigarettes Smoking packs per day: 0.5 Smoking cigarettes per day: 10.0 Years smoked: 50 Smoking pack-years: 25.00 Do you use any of these nicotine containing products: None Second hand tobacco smoke exposure: No How often do you have a drink containing alcohol: 4 or more times a week Alcohol type: hard liquor How many standard drinks containing alcohol do you have on a typical day: 1 or 2 How often do you have six or more drinks on one occasion: Never AUDIT-C Alcohol total score: 4 Non-prescribed substance use: over the counter (eg: immodium) Non-prescribed substance use details: ibuprofen, acetaminophen Caffeine: Yes (coffee, 1-2 cups/day) Exam Narrative: Exam Narrative: Constitutional: Appears well-developed and well-nourished. Alert. Conversant. Non toxic. HENT: Head: Atraumatic. Nose: Nose normal. Mouth/Throat: Oral mucosa is clear and moist. no trismus. Pharynx normal. Tonsils symmetric. No tonsillar enlargement, erythema, or exudate. Eyes: Conjunctivae normal. EOM normal. Pupils equal, round, and reactive to light. No scleral icterus. Neck: Normal range of motion. Neck supple. No tracheal deviation present. No JVD. No thyromegaly. Cardiovascular: Normal rate, regular rhythm. No gallop. No friction rub. No murmur heard. Symmetric radial and PT artery pulses Pulmonary/Chest: Effort normal. No stridor. No respiratory distress. No wheezes. No rales. No rhonchi . No tenderness. Abdominal: Soft. No distension. No mass. No tenderness. No rebound. No guarding. Musculoskeletal: RUE: Normal range of motion. No tenderness. No deformity LUE: Normal range of motion. No tenderness. No deformity RLE: Normal range of motion. No edema. No tenderness. No deformity LLE: Normal range of motion. No edema. No tenderness. No deformity Neurological: Alert and oriented to person, place, and time. Normal strength. CN II-VII intact. No sensory deficit. GCS eye subscore is 4. GCS verbal subscore is 5. GCS motor subscore is 6. Normal coordination Skin: Skin is warm and dry. No rash noted. No pallor. Normal capillary refill. Psychiatric: Normal mood. Normal affect. Const: Vital Signs, click to edit/add: Vital Signs - 24 hr 01/10/23 15:25 01/10/23 15:30 01/10/23 15:52 Temperature 97.3 F L Pulse Rate 64 65 Pulse Rate [Right Pulse Oximeter] 68 Respiratory Rate 18 Blood Pressure [Ri ght Upper Arm] 137/72 Pulse Oximetry 96 97 97 Oxygen Delivery Me thod Room Air Room Air 01/10/23 16:00 01/10/23 16:15 01/10/23 16:30 Temperature Pulse Rate 66 64 69 Pulse Rate [Right Pulse Oximeter] Respiratory Rate Blood Pressure [Ri ght Upper Arm] Pulse Oximetry 99 96 98 Oxygen Delivery Me thod 01/10/23 16:45 01/10/23 17:00 01/10/23 17:15 Temperature Pulse Rate 68 68 69 Pulse Rate [Right Pulse Oximeter] Respiratory Rate Blood Pressure [Ri ght Upper Arm] Pulse Oximetry 99 97 96 Oxygen Delivery Me thod 01/10/23 17:30 01/10/23 17:45 01/10/23 18:00 Temperature Pulse Rate 72 71 74 Pulse Rate [Right Pulse Oximeter] Respiratory Rate Blood Pressure [Ri ght Upper Arm] Pulse Oximetry 96 99 99 Oxygen Delivery Me thod Room Air Course Course ED Course: Recheck-doing well. No ongoing symptoms. Has been ambulatory in the hallway without any dizziness. She is requesting discharge home. Vital Signs Vital signs: Initial Vital Signs Temperature 97.3 F L 01/10/23 15:25 Temperature Source Temporal Artery Scan 01/10/23 15:25 Pulse Rate 68 01/10/23 15:25 Pulse Rhythm Regular 01/10/23 15:25 Respiratory Rate 18 01/10/23 15:25 Blood Pressure 137/72 01/10/23 15:25 Blood Pressure Mean 93 01/10/23 15:25 Blood Pressure Position Sitting 01/10/23 15:25 Pulse Oximetry 96 01/10/23 15:25 Oxygen Delivery Method Room Air 01/10/23 15:25 Vital Signs Temperature 97.3 F L 01/10/23 15:25 Pulse Rate 68 01/10/23 15:25 Respiratory Rate 18 01/10/23 15:25 Blood Pressure 137/72 01/10/23 15:25 Pulse Oximetry 96 01/10/23 15:25 Oxygen Delivery Method Room Air 01/10/23 15:25 Temperature 97.3 F L 01/10/23 15:25 Pulse Rate 74 01/10/23 18:00 Respiratory Rate 18 01/10/23 15:25 Blood Pressure 137/72 01/10/23 15:25 Pulse Oximetry 99 01/10/23 18:00 Oxygen Delivery Method Room Air 01/10/23 17:45 Medical Decision Making MDM Narrative Medical decision making narrative: This patient presents for evaluation of a syncopal event. A broad differential was considered. History provided suggests a benign cause of syncope. No murmurs . Initial ECG shows normal sinus rhythm and no dysrhythmogenic abnormality such as WPW, prolonged QT, Brugada syndrome, and no ischemia. No symptoms/findings concerning for cardiac ischemia or ACS . No headache or other neurologic symptoms to suggest subarachnoid , stroke . No reported seizure-like activity or postictal phase. security monitor while the patient here in the ER showed no dysrhythmia or ectopy. A broad differential diagnosis was considered including SVT, Atrial fibrillation, ventricular arrhythmia, thyroid disease, acute electrolyte abnormality, drugs/medications, medication side effect, anemia, heart disease, PE, among others. She does have mild hyponatremia which is likely noncontributory. This is previously known to the patient apparently chronic. Recommend recheck within 1 week with her doctor to make sure it is not worsening but likely is not contributing to her syncope today. The workup and exam here in ED shows low risk for dangerous cause of the patient's syncope, and no risks factors to warrant admission. Clinical judgement suggests that supportive outpatient management is indicated. Recommend follow up with her PCP with 1 week. Questions answered and return precautions given Lab Data Labs: Lab Results 01/10/23 Range/Units 16:04 WBC 10.00 (4.50-11.00) K/uL RBC 4.34 (4.00-5.20) m/uL Hgb 13.3 (12.0-16.0) gm/dL Hct 38.5 (33.0-51.0) % MCV 89 (80-100) fL MCH 31 (26-34) pg MCHC 35 (32-36) gm/dL RDW Coeff of Martha 13.0 (11.5-15.5) % Plt Count 226 (140-440) K/uL Neut % (Auto) 73.0 H (42.0-72.0) % Lymph % (Auto) 19.8 L (20-44) % Valencia % (Auto) 5.8 (0.0-11.0) % Eos % (Auto) 0.9 (0.0-7.0) % Baso % (Auto) 0.3 (0.0-3.0) % Neut # (Auto) 7.30 H (1.7-7.0) K/uL Lymph # (Auto) 2.00 (0.90-2.90) K/uL Valencia # (Auto) 0.60 (0.00-0.90) K/UL Eos # (Auto) 0.09 (0.00-0.50) K/uL Baso # (Auto) 0.03 (0.00-0.30) K/uL Abs Immat Gran (auto) 0.02 (0.00-0.30) K/uL Imm/Tot Granulo (auto) 0.2 % Sodium 132 L (135-149) mmol/L Potassium 4.1 (3.6-5.1) mmol/L Chloride 97 (96-114) mmol/L Carbon Dioxide 27 (20-32) mmol/L Anion Gap 8 (7-15) mEq/L BUN 17 (7-30) mg/dL Creatinine 0.7 (0.5-1.5) mg/dL Estimated Creat Clear 51.30 Estimated GFR 92 ml/min Glucose 110 (60-115) mg/dL Calcium 9.8 (8.4-10.6) mg/dL Troponin I < 0.01 L (0.01-0.04) ng/mL TSH 2.480 (0.270-4.200) uIU/mL Ethyl Alcohol < 0.01 L (0.01-0.03) % Imaging Data Chest x-ray: Radiologist's impression: Impression: Chronic interstitial changes without evidence of dense consolidation. ECG Data Interpretation: Normal sinus rhythm . Rate 63 CA 200 QRS axis normal axis. No pathologic Q-waves. ST segment/T wave: No ST segment elevation or depression. Nonspecific T-wave flattening throughout. QTc: 458. No signs of Brugada syndrome. No LVH. No delta waves or WPW. Discharge Plan Discharge Clinical Impression: Hyponatremia, Syncope and collapse Patient Disposition: Home, Self-Care Condition: Stable Instructions: Syncope (ED) Additional Instructions: Please follow-up with your regular doctor within the next 1 week. Recheck with your doctor to recheck her sodium and ask them if you need outpatient heart monitoring for further evaluation after this fainting spell. As we discussed, please come back to the ER right away if you have any problems especially dizzy spells, palpitations, chest pain, trouble breathing, lightheadedness, or if you have any other concerns. Prescriptions: No Action acetaminophen [Tylenol Extra Strength] 500 mg tablet 1,000 mg PO Q6H PRN metoprolol tartrate 100 mg tablet 100 mg PO Q12H Patient Comments: TAKE 1 TABLET BY MOUTH 2 TIMES DAILY. triamterene-hydrochlorothiazid 37.5-25 mg tablet 1 tab PO QAM Patient Comments: TAKE ONE TABLET BY MOUTH EVERY MORNING cyclobenzaprine 5 mg tablet 5 mg PO Q8H PRN Patient Comments: TAKE 1 TABLET (5 MG) BY MOUTH 3 TIMES DAILY IF NEEDED FOR MUSCLE SPASM. calcium carbonate [Calcium 600] 600 mg calcium (1,500 mg) tablet 600 mg PO BID cholecalciferol (vitamin D3) [Vitamin D3] 25 mcg (1,000 unit) capsule 1,000 unit PO DAILY multivitamin Tablet 1 tab PO DAILY vitamin B complex Tablet 1 tab PO DAILY vitamin E mixed 100 unit tablet 100 unit PO DAILY omega 3-nvl-puc-fish oil [Fish Oil] 1,000 mg (120 mg-180 mg) capsule 1 cap PO DAILY Follow Up/Referrals: Vidal Draper MD [Primary Care Provider] - Stand Alone Forms: [employer] Info Instructions
[2023-01-10 16:17] LABS: Basophils Absolute Auto 0.03 K/uL (0.00-0.30); Basophils Percent Auto 0.3 % (0.0-3.0); Eosinophils Absolute Auto 0.09 K/uL (0.00-0.50); Eosinophils Percent Auto 0.9 % (0.0-7.0); Hematocrit 38.5 % (33.0-51.0); Hemoglobin* 13.3 gm/dL (12.0-16.0); Immature Granulocytes Abs Auto 0.02 K/uL (0.00-0.30); Immature Granulocytes Pct Auto 0.2 %; Lymphocytes Percent Auto 19.8 % (20-44); Mean Corpuscular HGB Conc 35 gm/dL (32-36); Mean Corpuscular Hemoglobin 31 pg (26-34); Mean Corpuscular Volume 89 fL (80-100); Monocytes Percent Auto 5.8 % (0.0-11.0); Platelet Count* 226 K/uL (140-440); Red Blood Count 4.34 m/uL (4.00-5.20)
[2023-01-10 16:23] LABS: Slide Review Reflex No
[2023-01-10 16:31] LABS: Chloride* 97 mmol/L (96-114); Sodium* 132 mmol/L (135-149)
[2023-01-10 16:32] LABS: Potassium* 4.1 mmol/L (3.6-5.1)
[2023-01-10 16:34] LABS: Creatinine* 0.7 mg/dL (0.5-1.5); Estimated Glomerular Filt Rate 92 ml/min
[2023-01-10 16:35] LABS: Anion Gap 8 mEq/L (7-15); Blood Urea Nitrogen* 17 mg/dL (7-30); Calcium* 9.8 mg/dL (8.4-10.6); Carbon Dioxide* 27 mmol/L (20-32); Glucose* 110 mg/dL (60-115)
[2023-01-10 16:37] LABS: Ethanol* < 0.01 % (0.01-0.03)
[2023-01-10 16:46] LABS: Troponin I* < 0.01 ng/mL (0.01-0.04)
== END 2023-01-10 18:32 | disposition home or self-care (01) ==
LOC: ED 18:32
PROVIDERS: Emergency Provider Emergency Medicine; PCP Family Medicine
DX: E87.1 Hypo-osmolality and hyponatremia (principal); R55 Syncope and collapse
CPT/HCPCS: 36415; 71046; 80048; 82077; 84443; 84484; 85025; 93005; 99283; 99284; 99285

== ENCOUNTER 2024-02-20 12:30 | Outpatient (RCR) | payer MEDICARE, SELFPAY | END 2024-02-20 14:55 | disposition home or self-care (01) | PROVIDERS: PCP Family Medicine; Visit Provider Orthopaedic Surgery Orthopaedic Surgery of the Spine | DX: M54.50 Low back pain, unspecified (principal); Z51.89 Encounter for other specified aftercare | CPT/HCPCS: 97110; 97140; 97162 ==

== ENCOUNTER 2024-03-23 10:24 | Outpatient (CLI) | payer MEDICARE, SELFPAY ==
--- OUTSIDE RECORDS SUMMARY | 2024-03-23 10:27 | XMS_ITS | Clinical Summary ---
Author Organization [employer] [facility] Address [place], [place] [address] Care Team Providers Care Sweeping Compound Blender Name Role Phone Dari Mejia Primary Care Provider [phone] Allergies No known active allergies Medications Medication Sig Dispensed Refills Start Date End Date Status MULTIVITAMIN CAP None Entered 0 Active VITAMIN B COMPLEX TAB Take one daily 0 01/19/2009 Active VITAMIN E 100 UNIT TAB Take one daily 0 01/19/2009 Active cholecalciferol (VITAMIN D) 1,000 unit tablet Take 1 tablet by mouth once daily. 0 05/09/2009 Active calcium carbonate (CALTRATE) 600 mg calcium (1,500 mg) tablet Take 1 tablet by mouth 2 times daily with meals. 180 tablet 3 07/24/2018 Active acetaminophen (TYLENOL EXTRA STRGTH) 500 mg tablet TAKE 1 TO 2 TABLETS (500-1000MG) BY MOUTH EVERY SIX HOURS NEEDED. MAX ACETAMINOPHEN DOSE IS 4000MG PER 24 HOURS 11/21/2021 Active cyclobenzaprine (FLEXERIL) 5 mg tabletIndications:Sc oliosis, unspecified scoliosis type, unspecified spinal region Take 1 Tablet (5 mg) by mouth 3 times daily if needed for Muscle Spasm. 30 Tablet 3 09/13/2022 Active metoprolol tartrate (LOPRESSOR) 100 mg tabletIndications:Es sential hypertension Take 1 Tablet (100 mg) by mouth two times daily. 180 Tablet 3 11/06/2023 Active lisinopril-hydrochlo rothiazide (10-12.5 mg) tablet (PRINZIDE; ZESTORETIC)Indicatio ns:Essential hypertension Take 1 Tablet by mouth once daily. 90 Tablet 3 11/06/2023 Active atorvastatin (LIPITOR) 10 mg tabletIndications:Mi xed hyperlipidemia Take 1 Tablet (10 mg) by mouth at bedtime. 90 Tablet 3 11/06/2023 Active Active Problems Problem Noted Date Diagnosed Date Hyponatremia 11/06/2023 Donor of organ or tissue 02/14/2021 Overview (02/14/2021): She is donating her body to the [facility] and they must receive it within 24 hours of her . The contact number is [phone]. Arthritis of left knee 09/10/2019 Overview (09/10/2019): Confirmed by Arthroscopy in 2011. Vidal Draper MD signed electronically .................... 09/10/2019 Colonic stricture 12/12/2016 Osteopenia 07/23/2016 Arthritis 07/21/2015 Overview (07/21/2015): osteoarthritis Colon polyp 12/05/2011 Overview (06/20/2021): Colonoscopy 11/2011 polyp repeat in 5 years Colonoscopy 11/2016 severe diverticuli with stricture, unable to pass, recommend CT colonography She refused any colon cancer screening today 06/20/2021. Diverticulosis of colon (without mention of hemo rrhage) 12/03/2011 Unspecified essential hypertension Degeneration of intervertebral disc, site unspec ified Resolved Problems Problem Noted Date Diagnosed Date Resolved Date skilled nursing (current) use of anticoagulants 10/14/2012 11/05/2012 Osteopenia 08/14/2011 11/06/2023 Encounters Date Type Department Care Team Description 03/18/2024 Travel 02/17/2024 Transcribe Orders [facility] [address] [place] [address] Bentley Baig MD 02/09/2024 Orders Only [facility] Scanner 1 scan: (1-Ord) CEDAR CREST, LUMBAR SPINE MIN 4 VIEWS, 02/09/2024 from Last 3 Months Immunizations Name Administration Dates Next Due COVID-19 vaccine (Owl[employer]-Bio NTech 30mcg/0.3mL) ADAN MARROQUIN 05/09/2021,07/25/2020,07/04/2020 Hepatitis A (Adult) 08/21/2009 Hepatitis B (Adult) 08/21/2009 Inactivated Polio Vaccine 08/21/2009 Tdap 11/20/2007 Tuberculin (PPD) 12/09/2000 Typhoid (injectable) 08/21/2009 Yellow Fever 08/21/2009 Family History Medical History Relation Name Comments Cancer-prostate Brother Other Father kidney cancer a t age 54 Hypertension Maternal Grandmother Hypertension Mother Osteoporosis Mother Stroke Mother at 85 from her second stroke Cancer-breast No Family History Relation Name Status Comments Brother Alive Father Maternal Grandmother Mother Sister 1 Alive Sister 2 Alive Social History Tobacco Use Types Packs/Day Years Used Date Smoking Tobacco: Every Day Cigarettes 0.5 55.1 Started: 02/08/1969 Smokeless Tobacco: Never Tobacco Cessation:Ready to Q uit: Not Asked; Counseling Given: Not Answered Alcohol Use Standard Drinks/Week Comments Yes 20 (1 standard drink = 0.6 oz pu re alcohol) PHQ-2 Answer Date Recorded PHQ-2 TOTAL SCORE 1 11/04/2023 Social Connections Answer Date Recorded Do you often feel lonely or isolated from those around you? 0 11/04/2023 Alcohol Use Answer Date Recorded How often do you have a drink containing alcohol ? 4 10/16/2022 How many drinks containing a lcohol do you have on a typical day when you are drinking? 0 10/16/2022 How often do you have five or more drinks on one occasion? 0 10/16/2022 Financial Resource Strain Answer Date R ecorded Difficulty of Paying Living Expenses 3 11/04/2023 Difficulty of Paying Living Expenses Not on file 11/04/2023 Food Insecurity Answer Date Recorded Do you worry your food will run out before you are able to buy more? 1 11/04/2023 Transportation Needs Answer Date Record ed Does lack of transportation keep you from medica l appointments? 1 11/04/2023 Does lack of transportation keep you from work, meetings or getting things that you need? 1 11/04/2023 Housing Stability Answer Date Recorded What is your housing situation today? 2 11/04/2023 Sex and Gender Information Value Date Recorded Sex Assigned at Not on file Gender Identity Not on file Sexual Orientation Not on file Obstetrics History Para Term AB IAB SAB Ectopic Multiple Livin g Live Births 3 3 Date Outcome GA Total Labor Labor/2nd/3rd Weight Sex Type Anes PTL Krystal A1 A5 Name Clin Last Filed Vital Signs Vital Sign Reading Time Taken Comments Blood Pressure 104/80 12/01/2023 1:11 PM CDT Pulse 66 12/01/2023 1:11 PM CDT Temperature 36.6 C (97.8 F) 12/12/2021 11:17 AM CDT Respiratory Rate - - Oxygen Saturation 97% 12/01/2023 1:11 PM CDT Inhaled Oxygen Concentration - - Weight 80.7 kg (178 lb) 12/01/2023 1:11 PM CDT Height 170.9 cm (5' 7.28) 11/04/2023 11:08 AM C DT Body Mass Index 27.64 11/04/2023 11:08 AM CDT Plan of Treatment Upcoming Encounters Date Type Department Care Team (Late st Contact Info) Description 03/23/2024 11:00 AM STRIPPER OPAQUER Office Visit [facility] [address] [place] [address] Bentley Baig MD [address] [place] [address] Arrived Health Maintenance Due Date Last Done Comments Pneumococcal series for age 65+ (1 of 2 - PCV) [address] (for lung CA) ag e 50-80 2000 Zoster (shingles) series for age 50+ (1 of 2) 2000 Mammogram for age 45-75 05/17/2015 05/17/19 15, 08/02/2011, 08/02/2011 Tetanus booster 11/19/2017 11/20/2007 CT Colonography for age 45-75 12/12/2021 12/12/2016 COVID-19 vaccine series ( season) 2023 09/14/2021, 05/09/2021, 07/25/2020, Additional history exists Influenza for age 65+ 12/28/2023 BMI (ht and wt on same day) for age 18+ 11/03/2024 11/04/2023, 10/16/2022, 11/07/2021, Additional history exists Medicare Wellness for age 65+ 11/04/2024, 10/16/2022, 06/20/2021, Additional history exists Depression screening for age 12+ 11/05/2024 11/06/2023, 11/04/2023, 10/16/2022, Additional history exists Lipids for age 45-75 11/03/2028 11/04/2023, 10/08/2022, 06/18/2021, Additional history exists Tdap Completed 11/20/2007 Hepatitis C screening for ag e 18-79 Completed 01/02/2013 DEXA/DXA scan for age 65+ Completed 2017, 05/17/2014, 08/02/2011 Procedures Procedure Name Priority Date/Time Associated Diagnosis Comments AMB EPIDURAL STEROID INJECTION Routine 03/23/2024 7:59 AM STRIPPER OPAQUER Lumbar stenosis with neurogenic claudication SCAN-RADIOLOGY REPORT 02/09/2024 12:00 AM CDT LIPID PANEL W REFLEX MEASURED LDL Routine 11/04/2023 11:57 AM CDT Screening for lipid disorders XR DXA BONE DENSITY 2 SITES AXIAL Routine 08/28/2017 11:41 AM CDT Menopause XR MAMMO BILAT SCREEN FFDM (IA) Routine 05/17/2014 4:05 PM STRIPPER OPAQUER Other screening mammogram ANTI HCV Routine 01/02/2013 10:03 AM CDT Travel foreign from Last 3 Months or Most Recently Relevant to Health Maintenance Results * SCAN-RADIOLOGY REPORT (02/09/2024 12:00 AM CDT) Anatomical Region Laterality Modality Other Scanner OTHER * (ABNORMAL) LIPID PANEL W REFLEX MEASURED LDL (11/04/2023 11:57 AM CDT) CHOLESTEROL,TOTAL 256(H) 100 - 199 mg/dL 11/05/2023 12:00 AM CDT [facility] Comment: Cholesterol, Total Reference Ranges Desirable <200 mg/dL Borderline 200-239 mg/dL High >=240 mg/dL TRIGLYCERIDES 142 <150 mg/dL 11/05/2023 12:00 AM T [facility] HDL CHOLESTEROL 79 >40 mg/dL 12:00 AM CDT [facility] NON-HDL CHOLESTEROL 177(H) <145 mg/dl 11/05/2023 12:00 AM T [facility] CHOL/HDL RATIO 3.24 <4.50 11/05/2023 12:00 AM T [facility] LDL CHOLESTEROL 149(H) <=130 mg/dL 11/05/2023 12:00 AM T [facility] VLDL CHOLESTEROL 28 <=30 mg/dL 11/05/2023 12:00 AM T [facility] PROVIDER ORDERED STATUS RANDOM 11/05/2023 12:00 AM T [facility] Blood BLOOD SPECIMEN / Unknown Venipuncture / Unknown 11/04/2023 11:57 AM CDT 11/04/2023 11:58 AM CDT Dari SANCHEZ CHEMISTRY Performing Organization Address City/State/[facility] Co de Phone Number [facility] [address] [address], * XR DXA BONE DENSITY 2 SITES AXIAL [[id number]] (08/28/2017 11:41 AM CDT) Anatomical Region Laterality Modality Spine, HIPS, HIPL, HIPR Other Milena Anderson NP DEXA * XR MAMMO BILAT SCREEN FFDM (05/17/2014 4:05 PM STRIPPER OPAQUER) Anatomical Region Laterality Modality BREASTS, Breast Left, Breast Right Bilateral Mammography Impressions 05/18/2014 12:24 PM STRIPPER [facility]QUER There is no radiographic evidence for malignancy. Recommend annual mammograms. A lay language report of this examination will be provided to the patient. MAMMOGRAM ASSESSMENT: ACR 1 Negative Narrative 05/18/2014 12:24 PM STRIPPER OPAQUER XR MAMMO BILAT SCREEN FFDM [G0202.0] CLINICAL HISTORY: This is an asymptomatic 63 y.o. patient. INDICATION FOR EXAM: Mammogram Screening. TECHNIQUE: CC & MLO views were obtained. This digital study was evaluated with the assistance of Computer-Aided Detection. COMPARISON FILM: Yes 08/02/11 [facility] FINDINGS: Mammographically, the breast tissue has scattered fibroglandular densities. There are no dominant masses, suspicious micro calcifications or areas of architectural distortion. Procedure Note Valerio Gonzalez MD - 05/18/2014 XR MAMMO BILAT SCREEN FFDM [G0202.0] CLINICAL HISTORY: This is an asymptomatic 63 y.o. patient. INDICATION FOR EXAM: Mammogram Screening. TECHNIQUE: CC & MLO views were obtained. This digital study was evaluatedwith the assistance of Computer-Aided Detection. COMPARISON FILM: Yes 08/02/11 [facility] FINDINGS: Mammographically, the breast tissue has scatteredfibroglandular densities. There are no dominant masses, suspicious microcalcifications or areas of architectural distortion. IMPRESSION: There is no radiographic evidence for malignancy. Recommendannual mammograms. A lay language report of this examination will be provided to the patient. MAMMOGRAM ASSESSMENT: ACR 1 Negative Milena Anderson NP MAMMO * ANTI HCV (01/02/2013 10:03 AM CDT) ANTI HCV Non-reacti ve [facility] Blood specimen (specimen) BLOOD SPECIMEN / Unknown 01/02/2013 10:03 AM CDT 01/02/2013 9:44 AM CDT Milena Anderson NP SEND OUTS [facility] INTERNAL ZIP [id number] [place] [address] from Last 3 Months or Most Recently Relevant to Health Maintenance Advance Directives Documents on File Type Date Recorded Patient Reference Librarian Expl anation Healthcare Directive 01/15/2013 3:22 PM AM Jairo FLORES, 10/25/2012 Care Teams Sweeping Compound Blender Relationship Specialty Start Date End Date Dari Mejia PA [address] [place] [address] PCP - General Physician [employer] 11/04/23
== END 2024-03-23 10:25 | disposition home or self-care (01) ==
LOC: INJ CL 10:25
PROVIDERS: PCP Physician Assistant; Visit Provider Family Medicine
DX: M54.16 Radiculopathy, lumbar region (principal); M48.062 Spinal stenosis, lumbar region with neurogenic claudication
CPT/HCPCS: 64483; J1100; Q9966

== ENCOUNTER 2024-08-19 12:44 | Outpatient (CLI) | payer MEDICARE, SELFPAY ==
--- NOTE | 2024-08-19 13:00 | CRLHL7_ITS ---
For Patients: As a result of the Century Cures Act, medical imaging exams and procedure reports are released immediately into your electronic medical record. You may view this report before your referring provider. If you have questions, please contact your health care provider. XR DXA Bone Mineral Density (BMD) Reason for exam: Evaluate bone density, no previous. Spondylolisthesis. Current height (in): 67.5. Weight (lb): 125. Menopause age: 53. Ethnicity: White. 1. Have you had a previous hip or vertebral fracture? No. 2. Have you had any fractures during your adult life which did not result from significant trauma (e.g., auto accident)? No. 3. Did either of your parents have a hip fracture? No. 4. Do you smoke? Yes. 5. Have you ever taken Glucocorticoids? No. 6. Do you have rheumatoid arthritis? No. 7. Do you have secondary osteoporosis? No. 8. Do you drink 3 or more alcoholic drinks per day? No. 9. Are you being treated for osteoporosis? No. 10. Have you ever taken any of the following medications: Actonel, Evista, Fosamax, Miacalcin, Reclast, Boniva, Forteo, HRT (i.e. estrogen/hormone therapy), Protelos, Prolia, Vitamin D, Calcium, other ??? please specify. ANSWER: Yes, vitamin D, calcium. 11. Do you have any of the following medical conditions: Anorexia or bulimia, asthma or emphysema, end stage renal disease, hyperparathyroidism, any seizure disorders, cancer, inflammatory bowel diseases, hysterectomy, other ??? please specify. ANSWER: No. 12. What was your maximum height (inches)? 68. 13. Do you perform weight bearing exercise regularly? Yes. 14. Do you regularly consume dairy products? Yes. 15. Do you drink caffeinated beverages? Yes. 16. At what age did your period start? 12. 17. Are you premenopausal? No. 18. How many full term pregnancies have you had? 3. 19. Have you ever missed your period for more than 6 months in a row (not including or menopause)? No. TECHNIQUE: Bone mineral density study was performed using the [employer]. FINDINGS: The results of the study expressed as bone mineral density (BMD) are as follows: Lumbar spine L1 to L4: BMD: 0.793 g/cm2. T-score: -2.3. Z-score: 0.0. Neck Left: BMD: 0.612 g/cm2. T-score: -2.1. Z-score: -0.1. Right: BMD: 0.572 g/cm2. T-score: -2.5. Z-score: -0.5. Total Left: BMD: 0.744 g/cm2. T-score: -1.6. Z-score: 0.1. Right: BMD: 0.728 g/cm2. T-score: -1.8. Z-score: -0.0. IMPRESSION: Osteoporosis. Mookie Lentz M.D. Diagnostic Radiologist [email or web address] LINETTE/santino / bM/Dictated by: Mookie Lentz MD @ 08/19/2024 3:25:00 PM (Electronically Signed)
== END 2024-08-19 12:45 | disposition home or self-care (01) ==
PROVIDERS: PCP Physician Assistant; Visit Provider Orthopaedic Surgery Orthopaedic Surgery of the Spine
DX: M43.16 Spondylolisthesis, lumbar region (principal); M81.0 Age-related osteoporosis without current pathological fracture; M48.062 Spinal stenosis, lumbar region with neurogenic claudication
CPT/HCPCS: 77080

== ENCOUNTER 2025-01-07 13:02 | Outpatient (CLI) | payer MEDICARE, SELFPAY ==
--- NOTE | 2025-01-07 13:00 | CRLHL7_ITS ---
For Patients: As a result of the Century Cures Act, medical imaging exams and procedure reports are released immediately into your electronic medical record. You may view this report before your referring provider. If you have questions, please contact your health care provider. INDICATION: Low back pain. Lumbar stenosis. TECHNIQUE: Noncontrast sagittal and axial T1, T2, and sagittal STIR sequences are provided. No comparisons. FINDINGS: Grade 1 degenerative anterolisthesis of L4 on 5. The overall stature, alignment and intrinsic marrow signal within the remainder of the lumbar spine is within normal limits. Conus is normal. L1-2, L2-3, L3-4: Unremarkable. L4-5: Moderate to severe bilateral facet arthropathy with unroofing of the intervertebral disc space results in severe central canal and bilateral lateral recess narrowing. Neural foramina are patent. L5-S1: Central canal and neural foramina are patent. IMPRESSION: 1. Grade 1 degenerative anterior listhesis of L4 on 5 with resultant severe central canal and bilateral lateral recess narrowing. Dictated by Gorge Plunkett MD @ 01/07/2025 4:15:06 PM (Electronically Signed)
== END 2025-01-07 13:03 | disposition home or self-care (01) ==
LOC: MRI 13:03
PROVIDERS: PCP Physician Assistant; Visit Provider Orthopaedic Surgery Orthopaedic Surgery of the Spine
DX: M48.062 Spinal stenosis, lumbar region with neurogenic claudication (principal)
CPT/HCPCS: 72148